=== PATIENT | male | born 1960 | race Caucasian/White ===

== ENCOUNTER 2024-08-14 10:51 | Emergency (ER) | payer MEDICARE, MEDICAID ==
[~2024-08-14] VITALS: Ht 175.3 cm; Wt 88.9 kg
--- NOTE | 2024-08-14 11:42 | ED.PDOC ---
General HPI Comments HPI: 64y M who presents to the ED for chief complaint of testicular pain. - pt states he has been having R testicular swelling since yesterday - pt states he has been having associated pain, rating the pain 9/10, with no associated exacerbating or relieving factors - pt has associated difficulty voiding which he states has been ongoing for the past 8 days. - pt denies any associated injury or trauma - pt otherwise denies any other symptoms at this time. Past Medical history: thyroid Past Surgical history: denies Medications: denies Allergies: codeine Social History: denies ETOH, denies tobacco use, denies drug use MELISSA FAGAN: RIGHT TESTICULAR SWELLING PAIN HPI: POOR HISTORIAN. HPI: Poor Historian. REVIEW OF SYSTEMS: CONSTITUTIONAL: Denies acute: fever, diaphoresis, chills, generalized weakness. HEAD: Denies acute: headache, photophobia Eyes: Denies acute: Double vision, vision loss, eye pain, eye discharge. EARS: Denies acute: tinnitus, hearing loss, ear discharge, ear pain, THROAT: Denies acute: sore throat, swelling, difficulty swallowing , pain with swallowing, change in voice. NECK: Denies acute: neck pain, neck swelling, stiff neck. HEART: Denies acute : chest pain, palpitations, LUNGS: Denies acute: , wheezing, cough, hemoptysis ABDOMEN: Denies acute: abdominal pain, Nausea, Vomiting, diarrhea, melena , hematemesis, hematochezia SKIN: Denies acute: rash, redness, lesions, itchiness. EXTREMITIES: Denies acute: calf pain, numbness, tingling, weakness, Denies acute: Low back pain. Neuro: Denies acute: focal neurological deficit, motor or sensory focal neurological deficit, tremors, seizure like activity, confusion, dizziness, change in mental status, loss of bowel or bladder function, cauda equina like symptoms. : Denies acute: dysuria, hematuria, flank pain, increase in urinary frequency. PSYCH: Denies acute: hallucination, suicidal ideation, homicidal ideation. PHYSICAL EXAM: General: -----mild---acute distress, awake and alert. Head: normocephalic, atraumatic. Neck: supple, trachea is midline, no swelling. Throat: Normal phonation. Eyes:, no erythema, no purulent discharge, no proptosis, no icterus. Heart: regular rate, regular rhythm, no significant murmur appreciated. Lungs: no apparent respiratory distress, Able to speak in full sentences. No wheezing, no rhonchi, no crackles. No stridors Clear to auscultation bilaterally. Abdomen: non tender to palpation, non distended, soft, no guarding, no rebound, + bowel sounds. Neuro: Awake, Alert, oriented to name, self, situation, follows commands GCS=15. Speech is normal. Skin: no petechia, no purpura, no cyanosis, non-pale, not jaundice. Lower extremities: --2/4 b/l- Pitting edema no deformity, no focal swelling, no calf TTP. Makes eye contact. moves all four extremities. Face: no apparent facial droop. Ambulating in the ED independently. Patient is wearing hearing aids. Patient has vision impairment. : normal-appearing external male genitalia circumcised. Evaluation of the testicles and scrotum. There is noted right testicular swelling and some tenderness to palpation. No crepitus, no appreciated inguinal hernia. No pen ile discharge. No apparent erythema. ED COURSE: Chief Complaint: Testicle Pain Time Seen by MD: 11:00 Reviewed notes: Medications, Allergies Allergies: Coded Allergies: Codeine (Verified Allergy, Unknown, 08/14/24) Tramadol (Verified Allergy, Unknown, 08/14/24) Home Meds Active Scripts Cephalexin Monohydrate (Cephalexin) 500 Mg Tab, 1 TAB PO QID for 7 Days, #28 TAB Prov:MICHAELIVA DO 08/14/24 Information Source: Patient Mode of Arrival: Ambulatory Was a procedure done? Was a procedure done?: No Differential Diagnosis Kidney stone (Female): N/A Penile/Scrotal: Epidiymitis, Foreign Body, Prostatitis, STD, UTI, Fractured Penis, Phimosis, Hydrocele, Testicular Torsion, Urolithiasis, Urinary Retention X-Ray, Labs, Meds, VS Vital Signs Date Time Temp Pulse Resp B/P (MAP) Pulse Ox O2 Delivery O2 Flow Rate FiO2 08/14/24 13:58 84 16 98 Room Air* 0 21 08/14/24 13:47 98.2 97 17 125/71 (89) 96 98.2 08/14/24 11:05 98.1 99 18 110/72 (85) 96 98.1 Lab Test 08/14/24 11:45 08/14/24 11:11 Range/Units White Blood Count 15.4 H 4.4-10.8 10^3/uL Red Blood Count 4.85 4.5-5.90 10^6/uL Hemoglobin 15.0 13.5-17.5 g/dL Hematocrit 43.8 41.0-53.0 % Mean Corpuscular Volume 90.3 80.0-100.0 fL Mean Corpuscular Hemoglobin 30.9 28.0-32.0 pg Mean Corpuscular Hemoglobin Concent 34.2 32.0-36.0 g/dL Red Cell Distribution Width 13.3 11.8-14.3 % Platelet Count 324 140-450 10^3/uL Mean Platelet Volume 7.7 6.9-10.8 fL Neutrophils (%) (Auto) 80.8 H 37.0-80.0 % Lymphocytes (%) (Auto) 11.2 10.0-50.0 % Monocytes (%) (Auto) 6.9 0.0-12.0 % Eosinophils (%) (Auto) 0.2 0.0-7.0 % Basophils (%) (Auto) 0.9 0.0-2.0 % Neutrophils # (Auto) 12.4 H 1.6-8.6 10 ^3/uL Lymphocytes # (Auto) 1.7 0.4-5.4 10 ^3/uL Monocytes # (Auto) 1.1 0-1.3 10 ^3/uL Eosinophils # (Auto) 0 0-0.8 10 ^3/uL Basophils # (Auto) 0.1 0-0.2 10 ^3/uL Nucleated Red Blood Cells 0.1 % Lactic Acid Level 0.6 0.4-2.0 mmol/L Urine Color Light-yellow Yellow Urine Clarity Clear Clear Urine pH 6.0 5.0-9.0 Urine Specific Muse 1.005 1.001-1.035 Urine Protein Negative Negative Urine Ketones Negative Negative Urine Blood Trace H Negative /uL Urine Nitrite Negative Negative Urine Bilirubin Negative Negative Urine Urobilinogen Normal Negative mg/dL Urine Leukocyte Esterase 3+ Negative /uL Urine RBC 4 0 - 3 /hpf Urine Microscopic WBC 65 H 0-3 /HPF Urine Squamous Epithelial Cells Few <5 /hpf Urine Bacteria Mod H None Seen /hpf Urine Glucose Normal Normal mg/dL Chlamydia trachomatis (COTY) Pending Neisseria gonorrhoeae (COTY) Pending [facility] [id number] [place] [id number] Ph: [phone] DIAGNOSTIC IMAGING Diagnostic Imaging Report : [id number] Signed PATIENT: GRACIA TORRESACCT: [id number] UNIT: [id number] : 1960 LOC: ER ROOM / BED: / AGE / SEX: 64 / M ADM STATUS: REG ER SERVICE 1110 ORDERING PHYSICIAN: IVA RODRIGUEZ DO PROCEDURE(s): TESUS - TESTICULAR ULTRASOUND REASON: pain swelling ORDER NUMBER(s): [id number], ACCESSION NUMBER(s): [id number] ULTRASOUND OF SCROTUM AND CONTENTS. INDICATION: pain swelling COMPARISON: None TECHNIQUE: Multiple real-time grayscale sonographic and color and duplex Doppler images of the scrotum and its contents were obtained. FINDINGS: The right testicle measures 4.1 x 3.0 x 3.0 cm. The left testicle measures 4.3 x 2.6 x 2.9 cm. Both testicles demonstrate homogeneous echotexture without evidence of focal lesions. The right epididymis measures 1.2 cm. The left epididymis measures 1.3 cm. Bilateral epididymal cysts are present. Subsequent color and duplex Doppler interrogation of the testes demonstrated symmetric normal vascular flow to both testicles. No focal areas of hyperemia were seen. Small bilateral hydrocele. IMPRESSION: 1. No evidence of torsion, epididymitis, and/or orchitis. 2. Small bilateral hydrocele. ATED BY: ISREAL BERTRAND MD DICTATED DATE/TIME: 08/14/24 7182 SIGNED BY: ISREAL BERTRAND MD SIGNED DATE/TIME: 08/14/24 5727 CC: Time of 1ST Reevaluation: 00:00 Reevaluation 1ST: Improved Patient Education/Counseling: Diagnosis, Treatment Family Education/Counseling: Diagnosis, Treatment Comments Patient presented with the above HPI.---testicular pain---workup was initiated. patient was found with the above mentioned diagnosis. the following medications were ordered: please refer to order lists of meds and tests obtained by myself Dr. Rodriguez. Patient ED course and VS have been stabilized. Patient has been reassessed in the ED and remained in a stable condition. Pertinent incidental findings were discussed with the patient and/or family. Patient/family voices understanding and is agreeable with plan. Patient has been observed in the ED adequate length of time to insure improvement/stability. Escalation of care considered: Consideration of escalation to observation or admission Patient was DISCHARGED home in a stable condition. All the reports of any imaging studies that were ordered by myself were reviewed by myself. Departure 1 Departure Time of Disposition: 13:56 Impression: Primary Impression: Hydrocele Additional Impressions: Right testicular pain UTI (urinary tract infection) Disposition: 01 HOME / SELF CARE / HOMELESS Condition: Stable Additional Instructions: Additional instructions: You MUST follow-up with your primary care/family doctor in 1 to 2 days. If you are unable to see your primary care/family doctor, please return to our emergency room for re-assessment and re-evaluation in 1 to 2 days. Return to the emergency room here in our facility or to the nearest ER [facility] if your symptoms change or worsen. CONSULTATIONS: you MUST Follow-up for consultation as soon as possible with: -urology in 1-2 days. Please call for appointment. You MUST call the consultants office yourself to make an appointment. You may need to arrange that through your insurance and/or your primary/family doctor. If you are unable to see the change consultant in 1 to 2 days, you must return to our emergency room (or any other ER of your choice) for re-assessment and re- evaluation. Adequate fluid hydration. Below is a copy of your radiological report for follow up: [place] [address] Ph: [phone] DIAGNOSTIC IMAGING Diagnostic Imaging Report : [id number] Signed PATIENT: GRACIA TORRES ACCT: [id number] UNIT: [id number] : 1960 LOC: ER ROOM / BED: / AGE / SEX: 64 / M ADM STATUS: REG ER SERVICE 1110 ORDERING PHYSICIAN: IVA RODRIGUEZ DO PROCEDURE(s): TESUS - TESTICULAR ULTRASOUND REASON: pain swelling ORDER NUMBER(s): [id number], ACCESSION NUMBER(s): [id number] ULTRASOUND OF SCROTUM AND CONTENTS. INDICATION: pain swelling COMPARISON: None TECHNIQUE: Multiple real-time grayscale sonographic and color and duplex Doppler images of the scrotum and its contents were obtained. FINDINGS: The right testicle measures 4.1 x 3.0 x 3.0 cm. The left testicle measures 4.3 x 2.6 x 2.9 cm. Both testicles demonstrate homogeneous echotexture without evidence of focal lesions. The right epididymis measures 1.2 cm. The left epididymis measures 1.3 cm. Bilateral epididymal cysts are present. Subsequent color and duplex Doppler interrogation of the testes demonstrated symmetric normal vascular flow to both testicles. No focal areas of hyperemia were seen. Small bilateral hydrocele. IMPRESSION: 1. No evidence of torsion, epididymitis, and/or orchitis. 2. Small bilateral hydrocele. ATED BY: ISREAL BERTRAND MD DICTATED DATE/TIME: 08/14/24 1154 SIGNED BY: ISREAL BERTRAND MD SIGNED DATE/TIME: 08/14/24 1154 CC: e-Prescriptions Cephalexin Monohydrate (Cephalexin) 500 Mg Tab 1 TAB PO QID for 7 Days, #28 TAB Prov: IVA RODRIGUEZ DO 08/14/24 Discharged With: Self, Friend Critical Care Note Critical Care Time?: No I personally scribed for IVA RODRIGUEZ DO ([email or web address]) on 08/14/24 at 11:44. Electronically submitted by [employer] ([facility] I personally scribed for IVA RODRIGUEZ DO ([email or web address]) on 08/14/24 at 12:03. Electronically submitted by [employer] ([email or web address] IVA RODRIGUEZ DO August 14, 2024 11:42
--- NOTE | 2024-08-14 11:56 | DVH ---
ULTRASOUND OF SCROTUM AND CONTENTS. INDICATION: pain swelling COMPARISON: None TECHNIQUE: Multiple real-time grayscale sonographic and color and duplex Doppler images of the scrotu m and its contents were obtained. FINDINGS: The right testicle measures 4.1 x 3.0 x 3.0 cm. The left testicle measures 4.3 x 2.6 x 2.9 cm. Both testicles demonstrate homogeneous echotexture without evidence of focal lesions. The right epididymis measures 1.2 cm. The left epididymis measures 1.3 cm. Bilateral epididymal cysts are present. Subsequent color and duplex Doppler interrogation of the testes demonstrated symmetric normal vascula r flow to both testicles. No focal areas of hyperemia were seen. Small bilateral hydrocele. IMPRESSION: 1. No evidence of torsion, epididymitis, and/or orchitis. 2. Small bilateral hydrocele.
[2024-08-14 12:02] LABS: Basophils # (auto) 0.1 10 ^3/uL (0-0.2); Basophils % (auto) 0.9 % (0.0-2.0); Eosinophils # (auto) 0 10 ^3/uL (0-0.8); Eosinophils % (auto) 0.2 % (0.0-7.0); Hematocrit 43.8 % (41.0-53.0); Lymphocytes # (auto) 1.7 10 ^3/uL (0.4-5.4); Lymphocytes % (auto) 11.2 % (10.0-50.0); Mean Corpuscular Hemoglobin 30.9 pg (28.0-32.0); Mean Corpuscular Hgb Conc. 34.2 g/dL (32.0-36.0); Mean Corpuscular Volume 90.3 fL (80.0-100.0); Monocytes # (auto) 1.1 10 ^3/uL (0-1.3); Monocytes % (auto) 6.9 % (0.0-12.0); Neutrophils # (auto) 12.4 10 ^3/uL (1.6-8.6); Neutrophils % (auto) 80.8 % (37.0-80.0); Nucleated Red Blood Cells % 0.1 %; Platelet Count (auto) 324 10^3/uL (140-450); Red Blood Cells 4.85 10^6/uL (4.5-5.90); Red Cell Distribution Width 13.3 % (11.8-14.3); White Blood Cell 15.4 10^3/uL (4.4-10.8)
[2024-08-14 12:08] LABS: Urine Bacteria MOD /hpf (None Seen); Urine Blood TRACE /uL (Negative); Urine Clarity Clear (Clear); Urine Color Light-Yellow (Yellow); Urine Protein, UAD Negative (Negative); Urine Specific Gravity 1.005 (1.001-1.035); Urine Squamous Epithelial Cell FEW /hpf (<5); Urine Urobilinogen Normal (Negative); Urine WBC 65 /HPF (0-3)
[2024-08-14 13:47] VITALS: BP 125/71; TEMP 98.2
[2024-08-14 13:58] VITALS: PULSE 84; RESP 16; O2SAT 98
[2024-08-14] MEDS: cefTRIAXone 1GM/50ML D5W 50 ML IV ONE (13:58)
[2024-08-14] MEDS ORDERED: CEPH500T PO (13:59)
[2024-08-16 02:06] LABS: Chlamydia Trachomatis, NAA Negative (Negative); Neisseria gonorrhoeae, NAA Negative (Negative)
== END 2024-08-14 14:28 | disposition home or self-care (01) ==
LOC: ER 10:51
DX: N43.3 Hydrocele, unspecified (principal); N39.0 Urinary tract infection, site not specified; Z88.5 Allergy status to narcotic agent; Z88.8 Allergy status to other drugs, medicaments and biological substances
CPT/HCPCS: 36415; 76870; 81001; 83605; 85025; 87491; 87591; 96365; 99285; J0696